=== PATIENT | male | born 1960 | race Two or more races ===

== ENCOUNTER 2020-08-05 07:01 | Day surgery (SDC) | payer MEDICAID ==
[~2020-08-05] VITALS: Ht 170.2 cm; Wt 86.2 kg
[2020-08-05] MEDS ORDERED: LIDOCAINE VISCOUS 2% 15ML UD ONE (08:12)
[2020-08-05] MEDS ORDERED: MIDAZOLAM HCL 1MG/1ML-2 ML VIAL ONE (08:12)
[2020-08-05] MEDS ORDERED: fentaNYL CITRATE 100 MCG/2 ML VL ONE (08:12)
[2020-08-05] MEDS ORDERED: CARI350T22 PO (10:17)
[2020-08-05] MEDS ORDERED: OMEP-434 PO (10:17)
[2020-08-05] MEDS ORDERED: CHOL20007 PO (10:17)
[2020-08-05] MEDS ORDERED: ATOR20TA50 PO (10:17)
[2020-08-05] MEDS ORDERED: HYDR-4072 PO (10:17)
[2020-08-05] MEDS ORDERED: IBUP600T27 PO (10:17)
== END 2020-08-05 10:38 | disposition home or self-care (01) ==
LOC: CATH 07:01
PROVIDERS: ATTEND Internal Medicine Cardiovascular Disease
DX: Z01.810 Encounter for preprocedural cardiovascular examination (principal); I35.0 Nonrheumatic aortic (valve) stenosis; E78.5 Hyperlipidemia, unspecified; Z20.822 Contact with and (suspected) exposure to COVID-19; Z98.890 Other specified postprocedural states; Z87.891 Personal history of nicotine dependence
CPT/HCPCS: 93312; J2250; J3010; U0003; 99152

== ENCOUNTER 2020-08-07 07:58 | Day surgery (SDC) | payer MEDICAID ==
[~2020-08-07] VITALS: Ht 30.5 cm; Wt 0.5 kg
[~2020-08-07 07:58] MED LIST: ATOR20TA50 PO; CARI350T22 PO; CHOL20007 PO; HYDR-4072 PO; IBUP600T27 PO; OMEP-434 PO
[2020-08-07] MEDS ORDERED: ANGIOMAX 250 MG VIAL IV ONE (09:41)
[2020-08-07] MEDS ORDERED: fentaNYL CITRATE 100 MCG/2 ML VL ONE (09:41)
[2020-08-07] MEDS ORDERED: HEPARIN IN NS 1000Units/500mL 1,500 ML ONE (09:42)
[2020-08-07] MEDS ORDERED: LIDOCAINE 2%HCL (LOCAL ANESTH.) INJ 20ML MDV ONE (09:42)
[2020-08-07] MEDS ORDERED: IOHEXOL 350 MG/ML 100ML IJ ONE (09:42)
[2020-08-07] MEDS ORDERED: MIDAZOLAM HCL 2MG/2ML 2ml VIAL (1mg/ml) ONE (09:42)
[2020-08-07] MEDS ORDERED: SODIUM CHL 0.9% 0 ML ONE (09:44)
[2020-08-07] MEDS ORDERED: HYDROcodone-ACET 10/325MG TAB PO ONE (11:45)
[2020-08-07] MEDS ORDERED: CARISOPRODOL 350 MG TAB PO ONE (11:45)
[2020-08-07] MEDS ORDERED: HYDROcodone-ACET 10/325MG TAB ONE (11:57)
[2020-08-07] MEDS ORDERED: CARISOPRODOL 350 MG TAB ONE (11:57)
== END 2020-08-07 13:15 | disposition home or self-care (01) ==
LOC: CATH 07:58
PROVIDERS: ATTEND Internal Medicine Cardiovascular Disease
DX: I35.0 Nonrheumatic aortic (valve) stenosis (principal); I25.10 Atherosclerotic heart disease of native coronary artery without angina pectoris; E78.5 Hyperlipidemia, unspecified; Z87.891 Personal history of nicotine dependence; Z98.890 Other specified postprocedural states; Z79.899 Other long term (current) drug therapy
CPT/HCPCS: 93460; C1751; C1760; C1769; C1894; J1644; J2250; J3010; J7030; Q9967; 99152; 99153